=== PATIENT | female | born 1960 | race Two or more races ===

== ENCOUNTER 2018-01-22 12:07 | Outpatient (CLI) | payer OTHER | END 2018-01-22 16:16 | disposition home or self-care (01) | LOC: RAD 501 12:07 | DX: M54.2 Cervicalgia (principal) ==

== ENCOUNTER 2019-08-10 10:56 | Outpatient (CLI) | payer OTHER | END 2019-08-10 11:02 | disposition home or self-care (01) | LOC: RAD 10:56 | DX: Q28.2 Arteriovenous malformation of cerebral vessels (principal) ==

== ENCOUNTER 2019-10-13 13:59 | Outpatient (CLI) | payer OTHER | END 2019-10-13 15:04 | disposition home or self-care (01) | LOC: RAD 13:59 | DX: Q28.2 Arteriovenous malformation of cerebral vessels (principal) ==

== ENCOUNTER 2020-02-10 11:17 | Outpatient (CLI) | payer OTHER | END 2020-02-10 11:18 | disposition home or self-care (01) | LOC: RAD 11:17 | PROVIDERS: ATTEND Radiology Vascular & Interventional Radiology | DX: Q28.2 Arteriovenous malformation of cerebral vessels (principal) ==

== ENCOUNTER 2020-04-05 15:08 | Outpatient (CLI) | payer OTHER | END 2020-04-05 15:15 | disposition home or self-care (01) | LOC: RAD 15:08 | PROVIDERS: ATTEND Physical Medicine & Rehabilitation | DX: M25.561 Pain in right knee (principal); M25.562 Pain in left knee ==

== ENCOUNTER 2020-04-10 13:54 | Outpatient (CLI) | payer OTHER | END 2020-04-10 14:01 | disposition home or self-care (01) | LOC: MRI 13:54 | PROVIDERS: ATTEND Physical Medicine & Rehabilitation | DX: M25.561 Pain in right knee (principal) | CPT/HCPCS: 73721 ==